=== PATIENT | male | born 1940 | race Caucasian/White ===

== ENCOUNTER → 2023-12-23 09:59 | Outpatient (REF) | payer MEDICARE, OTHER, SELFPAY | LOC: HWRAD 09:59 | PROVIDERS: ATTENDING PHYSICIAN Internal Medicine Gastroenterology; FAMILY PHYSICIAN Family Medicine | DX: R10.84 Generalized abdominal pain (principal); Z87.19 Personal history of other diseases of the digestive system; R63.4 Abnormal weight loss | CPT/HCPCS: 74177; Q9967 ==

== ENCOUNTER → 2024-02-16 06:34 | Day surgery (SDC) | payer MEDICARE, OTHER, SELFPAY | LOC: GI 06:34 | PROVIDERS: ATTENDING PHYSICIAN Internal Medicine Gastroenterology | DX: R19.4 Change in bowel habit (principal); K64.8 Other hemorrhoids; K57.30 Diverticulosis of large intestine without perforation or abscess without bleeding; D12.3 Benign neoplasm of transverse colon; D12.0 Benign neoplasm of cecum; D12.2 Benign neoplasm of ascending colon | CPT/HCPCS: 45385; 45380; 88305 ==

== ENCOUNTER 2024-11-02 11:01 | Emergency (ER) | payer MEDICARE, OTHER, SELFPAY ==
[2024-11-02 11:24] VITALS: BP 125/77
--- NOTE | 2024-11-02 12:58 | ED.GENMED ---
History of Present Illness
General
Chief Complaint: Skin Problem
Time Seen by Provider: 11/02/24 12:49
History of Present Illness
History of Present Illness:
Patient presents emergency department with concern for superinfection of shingles. Was diagnosed 3 weeks ago with shingles received antivirals. Over the past that he notes foul-smelling discharge from under his right breast and worsening pain. No
fevers or chills. Otherwise feels well
Phy Exam
Physical Exam
Physical Exam:
General: No acute distress
Head: NCAT
Neck, Normal in appearance, no swelling
Respiratory: No Respiratory distress
Abdomen: No distension, under right breast there is maceration of skin there is no significant erythema or induration but there is some malodor.
Ext: no edema
Neuro: BROWNING, AOx4
Psych: Normal affect
Skin: Normal color
Course
Vital Signs
Initial and Last Documented VS:
Initial Vital Signs
Temp Pulse Resp BP Pulse Ox
98.5 F 83 18 125/77 97
11/02/24 11:24 11/02/24 11:24 11/02/24 11:24 11/02/24 11:24 11/02/24 11:24
Last Documented Vital Signs
Temp Pulse Resp BP Pulse Ox
98.5 F 83 18 125/77 97
11/02/24 11:24 11/02/24 11:24 11/02/24 11:24 11/02/24 11:24 11/02/24 11:24
*Critical Care Note
Total Time (30-74mins, 75-104mins- exclusive of procedures): Not Applicable
ED Attending Note
ED Attending Note
ED Attending Note:
Patient with possible early superinfection of his shingles infection. Will start on oral antibiotics recommend local wound care.
-
Portions of this chart may have been created with voice recognition software.� Occasional wrong word or��sound alike� substitutions may have occurred due to the inherent limitations of voice recognition software.
Discharge Plan
Departure
Patient Disposition: Home (Routine Discharge)
Date of Disposition: 11/02/24
Time of Disposition: 13:00
Patient with high blood pressure during this ER visit?: No
Discharge Problem:
Bacterial infection concurrent with and due to herpes zoster
Instructions: Cellulitis (Skin Infection), Adult (DC), Shingles
Prescriptions:
New
cephalexin 500 mg capsule
500 mg PO QID Qty: 28 0RF
Referrals:
Sachin Chacon MD [Family Provider] -
Interventions
Interventions:
*Risk Screen - Suicide Last Done: 11/02/24 11:26
*General Assessment Last Done: 11/02/24 11:26
*Neglect/Abuse Screening Last Done: 11/02/24 11:26
*Nursing Disposition Last Done: 11/02/24 13:30
ED-Skin Assessment Last Done: 11/02/24 12:56
Discharge Date and Time
Discharge Date/Time: 11/02/24 14:05
Print Language: YI
== END 2024-11-02 14:05 | disposition home or self-care (01) ==
LOC: EMR 11:01
PROVIDERS: EMERGENCY PHYSICIAN Emergency Medicine; FAMILY PHYSICIAN Family Medicine
DX: B02.8 Zoster with other complications (principal); L08.9 Local infection of the skin and subcutaneous tissue, unspecified
CPT/HCPCS: 99282